=== PATIENT | male | born 1985 | race Caucasian/White ===

== ENCOUNTER 2018-11-17 18:27 | Emergency (ER) | payer OTHER ==
[~2018-11-17] VITALS: Ht 180.3 cm; Wt 70.3 kg
[2018-11-17] MEDS ORDERED: IBUPROFEN 800 MG TABLET PO ONE (19:15)
[2018-11-17] MEDS ORDERED: IBUPROFEN 800 MG TABLET ONE (19:26)
--- NOTE | 2018-11-17 20:54 | NUR ---
Patient discharged to home in stable conditon. Written and verbal after care instructions given. Patient verbalizes understanding of instructions. Patient ambulated with stable gait.
[2018-11-17 20:58] VITALS: BP 122/90
== END 2018-11-17 20:59 | disposition home or self-care (01) ==
LOC: ER 18:27
DX: S16.1XXA Strain of muscle, fascia and tendon at neck level, initial encounter (principal); F17.200 Nicotine dependence, unspecified, uncomplicated; F12.10 Cannabis abuse, uncomplicated; X58.XXXA Exposure to other specified factors, initial encounter; Y93.89 Activity, other specified; Y92.89 Other specified places as the place of occurrence of the external cause; Y99.0 Civilian activity done for income or pay
CPT/HCPCS: 72125; A4663